=== PATIENT | female | born 1970 | race Two or more races ===

== ENCOUNTER 2025-01-19 17:45 | Emergency (ER) | payer OTHER ==
[~2025-01-19] VITALS: Ht 172.7 cm; Wt 87.1 kg
[2025-01-19] MEDS: KETOROLAC TROMETH 30 MG/ML 1ML VIAL IM ONE (18:51)
--- NOTE | 2025-01-19 18:53 | ED.PDOC ---
History of Present Illness(SKN HPI Comments 54-year-old female, with a significant paternal family history of breast cancer, presents with chief complaint of left breast lump and wound, with the associated pain and bloody discharge. Patient reports on having lump to her left breast for over a year, developing a wound underneath lump for over the past 2-3 months with pain. Pain is stated to have worsened over the past few months, with additional onset of bleeding, which began last week. Patient reports [facility] and being a referred back to her primary care physician to inquire for a mammogram. She states on having current difficulties on being seen by her PCP, currently, amidst multiple attempts at calling their office. No endorsement of any recent injuries, bites, or skin contact with any substance. Denial of any fever, chills, or further acute symptoms at this time. REVIEW OF SYSTEMS: General: No fever, no chills, HEENT: No neck pain, no blurred vision Cardiac: No chest pain. No palpitations. Lungs: No shortness of breath, GI: No abdominal pain, no vomiting Musculoskeletal: No joint pain , no back pain Skin: Left breast lump and wound, with the associated pain and bloody discharge. No rash. Neuro: No headache, no dizziness, no syncope PHYSICAL EXAM: General: Awake, alert and oriented. No acute distress. Skin: Skin in warm, dry and intact without rashes or lesions. HEENT: The head is normocephalic and atraumatic. Conjunctivae are clear without exudates or hemorrhage. Sclera is non-icteric. Neck: Normal range of motion. No JVD. Cardiac: Regular rate Respiratory: No signs of respiratory distress. No Stridor. Chest: Open wound under left breast fold with granulation tissue. Leaking serosanguineous fluid. Left breast with palpable large firm mass. Extremities: Upper and lower extremities are atraumatic in appearance without deformity. Neurological: The patient is awake, alert and oriented to person, place, and time with normal speech. Speech is clear. There is no facial asymmetry. Psychiatric: Appropriate mood and affect. Good judgement and insight. 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 Was a procedure done?: No Differential Diagnosis (INTG) Abscess: Abscess, Bacteremia, Cellulitis, Other (Malignanct,dermatitis, among others) X-Ray, Labs, Meds, VS Vital Signs Date Time Temp Pulse Resp B/P (MAP) Pulse Ox O2 Delivery O2 Flow Rate FiO2 01/19/25 21:26 98.0 61 20 151/81 (104) 98 98.0 01/19/25 18:46 98.3 81 16 131/69 (89) 98 98.3 01/19/25 18:46 81 18 98 Room Air 01/19/25 17:47 98.6 74 16 144/90 98 98.6 Lab Test 01/19/25 18:47 Range/Units White Blood Count 7.3 4.4-10.8 10^3/uL Red Blood Count 4.44 4.0-5.20 10^6/uL Hemoglobin 12.8 12.2-16.2 g/dL Hematocrit 39.0 36.0-46.0 % Mean Corpuscular Volume 87.9 80.0-100.0 fL Mean Corpuscular Hemoglobin 28.8 28.0-32.0 pg Mean Corpuscular Hemoglobin Concent 32.8 32.0-36.0 g/dL Red Cell Distribution Width 15.0 H 11.8-14.3 % Platelet Count 309 140-450 10^3/uL Mean Platelet Volume 7.7 6.9-10.8 fL Neutrophils (%) (Auto) 43.0 37.0-80.0 % Lymphocytes (%) (Auto) 47.1 10.0-50.0 % Monocytes (%) (Auto) 8.6 0.0-12.0 % Eosinophils (%) (Auto) 0.9 0.0-7.0 % Basophils (%) (Auto) 0.4 0.0-2.0 % Neutrophils # (Auto) 3.1 1.6-8.6 10 ^3/uL Lymphocytes # (Auto) 3.4 0.4-5.4 10 ^3/uL Monocytes # (Auto) 0.6 0-1.3 10 ^3/uL Eosinophils # (Auto) 0.1 0-0.8 10 ^3/uL Basophils # (Auto) 0 0-0.2 10 ^3/uL Nucleated Red Blood Cells 0.0 % Sodium Level 140 136-145 mmol/L Potassium Level 3.7 3.5-5.1 mmol/L Chloride Level 105 98-107 mmol/L Carbon Dioxide Level 26 20-31 mmol/L Anion Gap 9 5-15 Blood Urea Nitrogen 10 9-23 mg/dL Creatinine 1.01 0.550-1.02 mg/dL Glomerular Filtration Rate Calc 67 >90 mL/min BUN/Creatinine Ratio 9.9 L 10.0-20.0 Serum Glucose 77 74-106 mg/dL Calcium Level 9.4 8.7-10.4 mg/dL C-Reactive Protein High Sensitivity 1.57 H <1.0 mg/dL Current Medications Medications (Trade) Dose Ordered Sig/Leonard Route Start Time Stop Time Status Last Admin Ketorolac Tromethamine (Toradol Injection) 30 mg ONCE ONCE IM 01/19/25 18:45 01/19/25 18:46 DC 01/19/25 18:51 Time of 1ST Reevaluation: 19:00 Reevaluation 1ST: Unchanged Patient Education/Counseling: Need For Follow Up Family Education/Counseling: Need For Follow Up SEPSIS Sepsis Screen Date sepsis recognized/suspect: Jan 19, 2025 Time Sepsis recognized/suspect: 1748 Recent Procedure: No On Antibiotic Therapy: No Respiratory Rate >20: No Heart Rate >90: No Temp<36 C (96.8 F) or >38.3 C: No SBP <90 or MAP <65 mmHG: No New Acute Mental Status Change: No Is the patient on CPAP, BIPAP,: No Physician Orders L Breast Ultrasound (01/19/25 18:39) Vital Signs Date Time Temp Pulse Resp B/P (MAP) Pulse Ox O2 Delivery O2 Flow Rate FiO2 01/19/25 21:26 98.0 61 20 151/81 (104) 98 98.0 01/19/25 18:46 98.3 81 16 131/69 (89) 98 98.3 01/19/25 18:46 81 18 98 Room Air 01/19/25 17:47 98.6 74 16 144/90 98 98.6 Laboratory Tests Test 01/19/25 18:47 White Blood Count 7.3 10^3/uL (4.4-10.8) Medications Medications Dose Ordered Sig/Leonard Route Start Time Stop Time Status Last Admin Dose Admin Ketorolac Tromethamine 30 mg ONCE ONCE IM 01/19/25 18:45 01/19/25 18:46 DC 01/19/25 18:51 Departure 1 Departure Time of Disposition: 19:49 Impression: Primary Impression: Breast mass Disposition: 01 HOME / SELF CARE / HOMELESS Condition: Stable Additional Instructions: ED DISCHARGE INSTRUCTIONS Instructions: Please read all instructions provided in this packet carefully. Although you have been discharged from the Emergency Department, this does not mean that you have a "clean bill of health". []No definitive diagnosis for your symptoms has been made today. It is possible that you are in the process of developing a serious illness. This is why you must return to the ED without fail if any new or worsening symptoms (especially if your symptoms include chest pain, trouble breathing, abdominal pain, fever, headache, confusion, trouble seeing, or trouble walking) It is also very important that you see a primary care provider (PCP) as soon as possible to follow up. You will need a referral to Oncology and for further testing and treatment. A copy of your ultrasound report is included below. If you are unable to get an appointment, return to the ED for re-evaluation. PROCEDURE(s): LBRST - L BREAST ULTRASOUND REASON: left breast mass and wound ORDER NUMBER(s): [id number], ACCESSION NUMBER(s): [id number] US OF THE RIGHT BREAST INDICATION: left breast mass and wound TECHNIQUE: All 4 quadrants, subareolar region and axillary region of the LEFT breast were evaluated with ultrasound COMPARISON: None. FINDINGS: Within the lower inner quadrant there is a 7.7 x 6.1 x 8.2 cm lobulated hypoechoic solid appearing mass with some internal vascularity. It's presumably corresponds to the patient's normal agency. Margins are spiculated in some regions. No focal fluid collections. Overlying soft tissue / skin thickening. IMPRESSION: Large left breast mass presumably corresponding to the patient's known malignancy. An inflammatory mass could have a similar appearance however. Dedicated breast imaging center referral recommended if the patient has not been recently worked up. No drainable abscess. Comments MDM: Discussed with the patient possibility of malignancy. Patient advised to follow up with the primary care provider for referral for further treatment. Extensive evaluation was performed in attempt to identify or rule out: (See differential diagnosis section) The following tests were ordered, and results were reviewed by me and discussed with patient: (See diagnostic results section) I reviewed the following notes from the pt's past medical encounters: N/A Additional information was gathered from interviewing the following independent historians: Spouse Critical Care Note Critical Care Time?: No Stability Stability form required: No Heart Score Heart Score: Heart Score Response (Comments) Value History N/A 0 EKG N/A 0 Age N/A 0 Risk Factors N/A 0 Troponin N/A 0 Total 0 I personally scribed for RAHUL TRUJILLO MD ([email or web address]) on 01/19/25 at 18:53. Electronically submitted by Lester Rahman ([email or web address]). RAHUL TRUJILLO MD Jan 19, 2025 18:53
[2025-01-19 18:57] LABS: Hematocrit 39.0 % (36.0-46.0); Hemoglobin 12.8 g/dL (12.2-16.2); Mean Corpuscular Hemoglobin 28.8 pg (28.0-32.0); Mean Corpuscular Volume 87.9 fL (80.0-100.0); Nucleated Red Blood Cells % 0.0 %
[2025-01-19 19:06] LABS: Chloride 105 mmol/L (98-107); Potassium 3.7 mmol/L (3.5-5.1); Sodium 140 mmol/L (136-145)
[2025-01-19 19:07] LABS: Anion Gap 9 (5-15); Calcium 9.4 mg/dL (8.7-10.4); Carbon Dioxide 26 mmol/L (20-31)
[2025-01-19 19:12] LABS: BUN/Creatinine Ratio 9.9 (10.0-20.0); Blood Urea Nitrogen 10 mg/dL (9-23); Glucose 77 mg/dL (74-106)
--- NOTE | 2025-01-19 19:40 | DVH ---
US OF THE RIGHT BREAST INDICATION: left breast mass and wound TECHNIQUE: All 4 quadrants, subareolar region and axillary region of the LEFT breast were evaluated with ultrasound COMPARISON: None. FINDINGS: Within the lower inner quadrant there is a 7.7 x 6.1 x 8.2 cm lobulated hypoechoic solid appearing ma ss with some internal vascularity. It's presumably corresponds to the patient's normal agency. Margin s are spiculated in some regions. No focal fluid collections. Overlying soft tissue / skin thickening. IMPRESSION: Large left breast mass presumably corresponding to the patient's known malignancy. An inflammatory ma ss could have a similar appearance however. Dedicated breast imaging center referral recommended if t he patient has not been recently worked up. No drainable abscess.
[2025-01-19 21:26] VITALS: BP 151/81; PULSE 61; RESP 20; TEMP 98; O2SAT 98
== END 2025-01-19 21:28 | disposition home or self-care (01) ==
LOC: ER 17:49
DX: N63.42 Unspecified lump in left breast, subareolar (principal); N63.32 Unspecified lump in axillary tail of the left breast; Z79.899 Other long term (current) drug therapy
CPT/HCPCS: 36415; 76642; 80048; 85025; 86141; 96372; 99285; J1885